=== PATIENT | female | born 1975 | race Asian ===

== ENCOUNTER 2022-02-12 04:58 | Emergency (ER) | payer SELFPAY ==
[~2022-02-12] VITALS: Ht 162.6 cm; Wt 63.6 kg
[2022-02-12] MEDS ORDERED: ACETAMINOPHEN 500 MG TABLET PO ONE (05:15)
[2022-02-12] MEDS ORDERED: DIPHENOXYLATE/ATROP 2.5-0.025 MG TABLET PO ONE (05:15)
[2022-02-12] MEDS ORDERED: ONDANSETRON HCL 4 MG TABLET PO ONE (05:15)
[2022-02-12 05:43] LABS: BASOPHILS % (AUTO) 0.2 % (0.0-2.0); EOSINOPHILS % (AUTO) 0 % (1.0-6.0); HEMOGLOBIN 10.6 g/dL (12.0-16.0); LYMPHOCYTES # (AUTO) 0.6 K/uL (1.0-4.8); MEAN CORPUSCULAR HEMOGLOBIN 16.1 pg (26.0-34.0); MEAN CORPUSCULAR HGB CONC 30.3 G/dL (31.0-37.0); MEAN CORPUSCULAR VOLUME 53 fL (80-100); MONOCYTES # (AUTO) 1.3 K/uL (0.1-1.0); MONOCYTES % (AUTO) 8.6 % (2.0-9.0); NEUTROPHILS # (AUTO) 12.9 K/uL (1.8-7.7); PLATELET COUNT (AUTO) 220 K/uL (150-450); RED CELL DISTRIBUTION WIDTH 17.5 % (11.5-14.5)
[2022-02-12 05:45] LABS: ANION GAP 8 mmol/L (8-16); CALCIUM, TOTAL 9.1 mg/dL (8.8-10.5); CARBON DIOXIDE 27 mmol/L (22-29); CHLORIDE 101 mmol/L (98-107); GLUCOSE,RANDOM 134 mg/dL (70-110); POTASSIUM 3.9 mmol/L (3.5-5.1); SODIUM SERUM 136 mmol/L (136-145); UREA NITROGEN, BLOOD 16 mg/dL (7-18)
[2022-02-12 05:48] LABS: GLOMERULAR FILTR. RATE CALC > 60 mL/min (>60)
[2022-02-12 05:49] VITALS: BP 121/77
[2022-02-12 05:50] LABS: ALANINE AMINOTRANSFERASE 43 U/L (12-78); ALBUMIN 4.3 g/dL (3.4-5.0); ALKALINE PHOSPHATASE 51 U/L (46-116); ASPARTATE AMINOTRANSFERASE 20 U/L (15-37); BILIRUBIN,TOTAL 1.2 mg/dL (0.1-1.0); LIPASE 45 U/L (73-393); TOTAL PROTEIN, SERUM 8.4 g/dL (6.4-8.2)
[2022-02-12 05:51] LABS: NEUTROPHILS % (AUTO) 87.2 % (40.0-70.0)
[2022-02-12 06:16] LABS: PLATELET MORPHOLOGY COMMENT LARGE PLTS PRESENT
[2022-02-12] MEDS ORDERED: SODIUM CHLORIDE 0.9% 1,000 ML IV ONE (07:15)
[2022-02-12] MEDS ORDERED: ONDA-104 PO (07:59)
== END 2022-02-12 08:16 | disposition home or self-care (01) ==
LOC: EMS 04:58
DX: K52.9 Noninfective gastroenteritis and colitis, unspecified (principal)
CPT/HCPCS: 99284; 96360; 80053; 83690; 84703; 85025; 36415; Q0162